=== PATIENT | male | born 1995 | race African-American/Black ===

== ENCOUNTER 2018-02-04 14:51 | Emergency (ER) | payer SELFPAY ==
[~2018-02-04] VITALS: Ht 177.8 cm; Wt 66.0 kg
[2018-02-04] MEDS ORDERED: IBUPROFEN 600MG TABLET PO ONE (17:00)
[2018-02-04 18:19] VITALS: BP 133/79
== END 2018-02-04 18:20 | disposition home or self-care (01) ==
LOC: ER 15:27
DX: S93.491A Sprain of other ligament of right ankle, initial encounter (principal); F12.10 Cannabis abuse, uncomplicated; Z90.49 Acquired absence of other specified parts of digestive tract; Y93.83 Activity, rough housing and horseplay; Y92.018 Other place in single-family (private) house as the place of occurrence of the external cause
CPT/HCPCS: 73610; 99284; Z7610